=== PATIENT | female | born 1985 ===

== ENCOUNTER 2016-06-01 19:30 | Emergency (ER) | payer MEDICAID, OTHER ==
[2016-06-01 20:42] LABS: Basophils % (Auto) 0.3 % (0.0-1.8); Eosinophils % (Auto) 0.6 % (0.0-4.3); Hematocrit 38.4 % (30.3-42.9); Hemoglobin 12.3 gm/dl (10.1-14.3); Mean Corpuscular HGB Conc 32 % (30-34); Mean Corpuscular Volume 81 fl (79-97); Platelet Count 283 K/mm3 (140-440); Red Blood Count 4.76 M/mm3 (3.65-5.03); Red Cell Distribution Width 14.3 % (13.2-15.2); White Blood Count 6.5 K/mm3 (4.5-11.0)
[2016-06-01 20:59] LABS: Mean Corpuscular Hemoglobin 26 pg (28-32)
[2016-06-01 21:00] LABS: INR 1.1 (0.87-1.13)
[2016-06-01 21:01] LABS: Anion Gap 17 mmol/L; BUN/Creatinine Ratio 16.66; Blood Urea Nitrogen 10 mg/dL (7-17); Calcium 9.3 mg/dL (8.4-10.2); Carbon Dioxide 24 mmol/L (22-30); Chloride 99.3 mmol/L (98-107); Glucose 84 mg/dL (65-100); Partial Thromboplastin Time 29.6 Sec. (24.2-36.6); Sodium 136 mmol/L (137-145)
--- NOTE | 2016-06-02 00:55 | Emergency Department Report ---
HPI - General Chief Complaint: Chest Pain Time Seen by Provider: 06/02/16 00:01 - HPI HPI: 31-year-old -[place] female comes in for chest pain for 2 weeks. Patient reports that the pain is in her right upper chest. She reports it is sharp nothing makes it worse and nothing makes it better is intermittent. She has not tried any [id number] pain medications. She only can report that she had used it and he drink about 2 weeks ago. He has no past medical history currently takes no medication has no known drug allergies recently traveled outside the country last menstrual period was 05/25/2016. She denies any pain at this moment. ED Past Medical Hx - Past Medical History Previous Medical History?: Yes Hx Hypertension: No Hx Diabetes: No Hx Deep Vein Thrombosis: No Hx Renal Disease: No Hx Sickle Cell Disease: No Hx Seizures: No Hx Asthma: No Hx HIV: No - Surgical History Past Surgical History?: No - Social History Smoking Status: Never Smoker Substance Use Type: None - Medications Home Medications: Home Medications Medication Instructions Recorded Confirmed Last Taken Type Tablet 2 tab PO DAILY 08/15/14 08/15/14 08/14/14 11:00 History 2 tabs ED Review of Systems ROS: Stated complaint: CHEST PAIN Other details as noted in HPI Physical Exam - Physical Exam Vital Signs: Vital Signs 06/01/16 19:30 Temperature 98.7 F Pulse Rate 78 Respiratory 18 Rate Blood Pressure 136/88 [Right] O2 Sat by Pulse 20 L Oximetry Physical Exam: GENERAL: Alert and oriented x3, no apparent distress, Normal Gait, atraumatic. HEAD: Head is normocephalic and a-traumatic. EYES: Extra ocular muscles are intact. Pupils are equal, round, and reactive to light and accommodation. LUNGS: Symetrical with respiration, No wheezing, no rales or crackles, CTAB. Nontender to palpate of the chest wall. Pulse ox 98% on room air HEART: S1, S2 present, regular rate and rhythm without murmur, no rubs, no gallops. EXTREMITIES/MUSCULOSKELETAL: No cyanosis, clubbing, rash, lesions or edema. Full ROM bilaterally. UE/LE Pulses 2+ bilaterally. LE and UE 5+ strength bilaterally NEUROLOGIC: No focal Deficit, Cranial nerves II through XII are grossly intact. No loss of sensation, No facial droop, Negative rhomberg. PSYCHIATRIC: Mood is congruent with affect, denies suicidal or homicidal ideations. SKIN: Warm and dry, No lesions, No ulceration or induration present ED Course Vital Signs 06/01/16 19:30 Temperature 98.7 F Pulse Rate 78 Respiratory 18 Rate Blood Pressure 136/88 [Right] O2 Sat by Pulse 20 L Oximetry ED Medical Decision Making - Lab Data Result diagrams: 06/01/16 20:17 06/01/16 20:17 - Medical Decision Making Patient's been evaluated by this provider in fast track. Labs were reviewed and EKG were was reviewed. Discussed the patient just does not appear to be cardiac. Reassured patient that she can follow up with the primary care provider. Instructed patient that she can take Tylenol or Motrin for discomfort. Patient verbalized understanding. Critical care attestation.: If time is entered above; I have spent that time in minutes in the direct care of this critically ill patient, excluding procedure time. ED Disposition Clinical Impression: Atypical chest pain Disposition: DISCHARGED TO HOME OR SELFCARE Is pt being admited?: No Does the pt Need Aspirin: No Condition: Stable Instructions: Chest Pain (ED) Additional Instructions: He can take Tylenol or Motrin for ear discomfort. I recommend avoiding the energy drinks. Follow-up with the primary care provider. Referrals: TONY ENG MD [Staff Physician] - 3-5 Days Forms: Work/School Release Form(ED)
[2016-06-02 01:11] VITALS: BP 125/87
== END 2016-06-02 00:57 | disposition home or self-care (01) ==
LOC: ED 19:30
DX: R07.89 Other chest pain (principal)
CPT/HCPCS: 36415; 80048; 84484; 84703; 85025; 85610; 85730; 93005; 93010; 99284